=== PATIENT | female | born 1955 | race Caucasian/White ===

== ENCOUNTER 2019-12-29 06:44 | Observation (INO) | payer OTHER ==
[~2019-12-29] VITALS: Ht 162.6 cm; Wt 54.4 kg
[2019-12-29] VITALS (9 sets, daily range): BP systolic 129–135; BP diastolic 59–99
[2019-12-29] MEDS ORDERED: FLONASE 0.05%50 MCG NARES (07:30)
[2019-12-29] MEDS ORDERED: CLARITIN10 M3 PO (07:30)
[2019-12-29 07:40] LABS: HEMATOCRIT 40.4 % (37.0-47.0); HEMOGLOBIN 13.7 gm/dL (12.0-15.0); MCV 94.1 fL (80.0-100.0); RBC 4.3 mil/uL (4.20-5.00); RDW 13.6 % (10.5-14.5); WBC 4.2 thou/uL (4.0-11.0)
--- NOTE | 2019-12-29 07:41 | EKG ---
[facility] [place] [address] ELECTROCARDIOGRAM REPORT Name: REGINA TAM Room #: REG [facility].#: [id number] Admission: 12/29/19 Attend Phys: John George MD, Discharge: Date of : 51 Report #: [id number] THIS REPORT FOR: cc: OLEG CORTEZ Physician not on staff Mk Abraham MD [facility] THIS REPORT FOR: //name// [facility] Test Date: 2019-12-29 Test Time: 07:16:17 Pat Name: REGINA TAM Department: Room: Gender: Prep Manager: DANELLE : 1955 Requested By: John George Order Number: [id number] MD: Mk Abraham Measurements Intervals [place] Rate: 101 P: 74 MS: 166 QRS: 30 QRSD: 78 T: 56 QT: 363 QTc: 471 Interpretive Statements Sinus tachycardia Atrial premature complexes Poor R wave progression No previous ECG available for comparison Electronically Signed On 12-29-2019 7:40:16 CDT by Mk Abraham [email or web address] <ELECTRONICALLY SIGNED> By: Mk Abraham MD, [facility] 12/29/19 0740 5 5 Mk Abraham MD, [facility] /EPI
[2019-12-29 07:58] LABS: CALCIUM 8.4 mg/dL (8.5-10.1); CREATININE 0.7 mg/dL (0.6-1.0); POTASSIUM 3.8 mmol/L (3.5-5.1)
--- NOTE | 2019-12-29 12:15 | 2DMMODE ---
[facility] [place] [address] 2 D/M-MODE ECHOCARDIOGRAM Name: REGINA TAM Room #: 160-1 ADM Tamie Willis#: [id number] Admission: 12/29/19 Attend Phys: John George MD, Discharge: Date of : 51 Report #: [id number] THIS REPORT FOR: cc: OLEG CORTEZ Physician not on staff John George MD [facility] ~ APPROVED REPORT Study performed: 12/29/2019 10:25:07 EXAM: Comprehensive 2D, Doppler, and color-flow Echocardiogram Patient Location: CVL Status: routine BSA: 1.69 HR: 65 bpm BP: 134/99 mmHg Rhythm: Sinus/frequent arrhythmia Other Information Study Quality: Adequate/no patient participation. Technically limited study due to flat on back, breast implants.. Indications Chest pain, s/p heart cath with PCI. Cardiomyopathy. Hx: HTN, HLP, tobacco abuse, cancer. 2D Dimensions RVDd: 37.14 mm IVSd: 9.28 (7-11mm) LVOT Diam: 19.09 (18-24mm) LVDd: 45.07 mm PWd: 10.44 (7-11mm) Ascending Ao: 29.54 (22-36mm) LVDs: 38.24 (25-40mm) Aortic Root: 34.89 mm Volumes Left Atrial Volume (Systole) Single Plane 4CH: 30.62 mL Single Plane 2CH: 32.36 mL LA ESV Index: 21.00 mL/m2 Aortic Valve AoV Peak Zuhair.: 0.89 m/s AO Peak Gr.: 3.18 mmHg LVOT Max P.27 mmHg [facility] [address] [place] [address] 2 D/M-MODE ECHOCARDIOGRAM Name: REGINA TAM Room #: [address] [place] [address]#: [id number] Admission: 12/29/19 Attend Phys: John George, Discharge: Date of : 51 Report #: [id number] LVOT Max V: 0.56 m/s SILVERIO Vmax: 1.81 cm2 Mitral Valve E/A Ratio: 1.3 MV Decel. Time: 221.77 ms MV E Max Zuhair.: 0.72 m/s MV A Zuhair.: 0.55 m/s MV PHT: 64.31 ms IVRT: 96.89 ms Pulmonary Valve PV Peak Zuhair.: 0.42 m/s PV Peak Gr.: 0.70 mmHg Tricuspid Valve TR Peak Zuhair.: 2.01 m/s RAP Estimate: 5.00 mmHg TR Peak Gr.: 16.13 mmHg PA Pressure: 21.00 mmHg Left Ventricle The left ventricle is normal size. There is normal left ventricular wall thickness. Left ventricular systolic function is moderate to severely decreased. LVEF is 30-35% global hypo Right Ventricle The right ventricle is normal size. The right ventricular systolic function is normal. Atria The left atrium size is normal. The right atrium size is normal. Aortic Valve The aortic valve is normal in structure. No aortic regurgitation is present. There is no aortic valvular stenosis. Mitral Valve The mitral valve is normal in structure. Mild mitral regurgitation. No evidence of mitral valve stenosis. Tricuspid Valve The tricuspid valve is normal in structure. Trace to mild tricuspid regurgitation. Estimated PAP is 20-25mmHg. Pulmonic Valve The pulmonary valve is normal in structure. Trace pulmonic [facility] [address] [place] [address] 2 D/M-MODE ECHOCARDIOGRAM Name: REGINA TAM Room #: 160-1 ADM IN M.R.#: [id number] Admission: 12/29/19 Attend Phys: John George, Discharge: Date of : 51 Report #: [id number] regurgitation. Great Vessels The aortic root is normal in size. The ascending aorta is normal in size. IVC is normal in size and collapses >50% with inspiration. Pericardium There is no pericardial effusion. <Conclusion> The left ventricle is normal size. LVEF is 30-35% global hypo The right ventricle is normal size. The left atrium size is normal. The aortic valve is normal in structure. Mild mitral regurgitation. Trace to mild tricuspid regurgitation. Estimated PAP is 20-25mmHg. The aortic root is normal in size. There is no pericardial effusion. <ELECTRONICALLY SIGNED> By: John George MD, FACC 12/29/19 1214 13 13 John George MD, FACC /INF
--- NOTE | 2019-12-29 17:01 | CATHLAB ---
[facility] [address] [place] [address] INVASIVE PROCEDURE REPORT Name: REGINA TAM Room #: 200-I ADM Tamie Willis#: [id number] Admission: 12/29/19 Attend Phys: John George MD, Discharge: Date of : 51 Report #: [id number] THIS REPORT FOR: cc: OLEG CORTEZ Physician not on staff John George MD [facility] ~ APPROVED REPORT Study performed: 12/29/2019 08:30:28 Patient Details Patient Status: Out-Patient Room #: The patient is a 64 year-old female Event Personnel John George Marketing Analytics Analyst, Chloe Price Johnson, Ashley RN RN, Patricia Coates RTR, SOCIAL MEDIA MARKETING SPECIALIST Scrub Procedures Performed Art Access - R femoral artery* Cordell Access - R femoral vein Right and Left Heart Cath w/or w/o Coronarie [id number] [facility] Aortogram Abdominal Peripheral Angio [id number] SHAHLA Place w/wo Plasty Single LAD [id number] Hemostasis w/ Mynx 04378 Initial Mod Sed Same Phys/QHP Gr5y [id number] Mod Sed Same Phys/QHP Ea [id number] Indication Chest pain Procedure Narrative The Right Groin^ was infiltrated with 1% Lidocaine subcutaneous anesthesia. A PINNACLE 6FR Sheath #[id number] sheath was inserted into the RFA 6F^. Coronary angiography was performed using coronary diagnostic catheters. The right coronary system was accessed and visualized with a JR4 catheter. The left coronary system was accessed and visualized with a JL4 catheter. The left ventricle was accessed and visualized with a STR PIG catheter. Left ventriculogram was performed in 30 degree projection. There was no hematoma. A 7F SHEATH IN THE RFV for right heart pressures. held with a manual hold no complications Intraoperative Conscious Sedation Sedation start time: 906 Case end Time: 1009 Fentanyl 50 mcg Versed 1 mg [facility] [place] [address] INVASIVE PROCEDURE REPORT Name: REGINA TAM Room #: 200-I [facility]#: [id number] Admission: 12/29/19 Attend Phys: John George, Discharge: Date of : 51 Report #: [id number] Fluoro Time: 5.44 minutes Dose: DAP 5397.50 cGycm2 644 mGy Contrast Type and Amount: Omnipaque 205 ml Hemodynamics The right atrial mean pressure is 4 mmHg. The right ventricular pressure is 45/9 mmHg. The pulmonary artery pressure is 35/10 mmHg with a mean of 21 mmHg. The mean pulmonary capillary wedge pressure is 22 mmHg. The aortic pressure is 149/77 mmHg with a mean of 73 mmHg. The left ventricular pressure is 131/11 mmHg with a mean of mmHg. The left ventricular end diastolic pressure is 28 mmHg. The cardiac output using thermo method is 3.40 L/min. The cardiac index using thermo method is 2.01 L/min/m2. PCI Technique Lesion Percutaneous coronary intervention was performed on the mid left anterior descending artery segment. A LAUNCHER 6FR EBU 3.5 #[id number] Guide Catheter was used to engage the ostium. A Luge Wire .014 x 182CM #[id number] Interventional Guidewire was used to cross the lesion. STENT DEPLOYMENT A stent RESOLUTE JIGAR OTW 3.0 X 12 #[id number] was inserted and inflated up to 9.00atm for 17seconds. Additional Inflation: 14.00atm for 27seconds. Conclusion 1. Successful PTCA stent of the proximal eccentric 80% LAD lesion to 0% with placement of a 3.0 x 12 resolute jigar drug-eluting stent NANDO grade III flow #2 left main free of disease giving rise to LAD and circumflex #3 circumflex OM nondominant with mild irregularity #4 the LAD is otherwise preserved in a large diagonal system free of disease #5 dominant right with mild diffuse disease in the mid and proximal mid vessel 30 to 40% giving rise to a single PDA preserved. The posterior lateral system comes off the circumflex OM #6 mildly dilated left ventricle with moderate global hypokinesis EF in the 35% range. #7 the abdominal aorta is ectatic but no definite aneurysm. Brisk flow into the iliac system #8 successful right heart catheterization with hemodynamics and cardiac output by thermodilution all noted above. Recommendations and plan. Patient hemodynamically stable transfer to [facility] [address] [place] [address] INVASIVE PROCEDURE REPORT Name: REGINA TAM Room #: 200-I [facility] IN [facility]#: [id number] Admission: 12/29/19 Attend Phys: John George, Discharge: Date of : 51 Report #: [id number] CCU follow stent protocol. Dual antiplatelet therapy initiated. The degree of LV dysfunction is out of proportion to the coronary disease. Will initiate afterload reducers beta-ankita. <ELECTRONICALLY SIGNED> By: John George MD, FACC 12/29/191658 58 58 John George MD, FACC /INF
--- NOTE | 2019-12-29 18:44 | NUR ---
PT CARE ASSUMED AT 1320. ASSESSMENTS CHARTED. MEDICATION CHARTED. POST CARDIAC CATH; BEDREST COMPLETED PRIOR TO ADMISSION TO . RT GROIN; MYNX; C/D/I; MID LAD STENT. HEMOSTASIS AT 1001.
[2019-12-30 00:22] VITALS: BP 132/88
[2019-12-30 04:16] VITALS: BP 131/90
--- NOTE | 2019-12-30 04:31 | NUR ---
ASSESSMENTS CHARTED, MEDS GIVEN CHARTED. PATIENT RESTING IN BED DURING SHIFT. UP AT TIKA, OFF BED REST PRIOR TO START OF SHIFT. PATIENT WAS IN PHYSICAL THERAPIST AIDE DURING DAY SHIFT RECEIVED A STENT TO MID LAD. RIGHT GROIN SITE IS CLEAN, DRY, SOFT, INTACT. BRUISING PRESENT. PATIENT RECEIVED 1 LITER OF MAINTENANCE FLUID. PLAN OF CARE IS TO RETURN HOME TODAY. DENIED PAIN. FALL PRECAUTIONS IN PLACE.
[2019-12-30 05:23] LABS: HEMATOCRIT 38.6 % (37.0-47.0); HEMOGLOBIN 13.2 gm/dL (12.0-15.0); MCH 32.4 pg (26.0-34.0); MCHC 34.3 g/dL (28.0-37.0); MCV 94.4 fL (80.0-100.0); RBC 4.09 mil/uL (4.20-5.00); RDW 13.4 % (10.5-14.5); WBC 4.4 thou/uL (4.0-11.0)
[2019-12-30 05:45] LABS: ALBUMIN 2.9 g/dL (3.4-5.0); ANION GAP 7 mmol/L (7-16); BUN 7 mg/dL (7-18); CALCIUM 7.8 mg/dL (8.5-10.1); CHLORIDE 105 mmol/L (98-107); CHOLESTEROL 114 mg/dL (<200); CO2 26 mmol/L (21-32); CREATININE 0.7 mg/dL (0.6-1.0); GLUCOSE 97 mg/dL (74-106); HDL CHOLESTEROL 31 mg/dL (>40); LDL CHOLESTEROL 71 mg/dL (<100); POTASSIUM 3.9 mmol/L (3.5-5.1); SGOT 25 U/L (15-37); SGPT 24 U/L (30-65); SODIUM 138 mmol/L (136-145); TC:HDL 3.7 Ratio (Not establshd); TOTAL BILIRUBIN 0.6 mg/dL (0.2-1.0); TOTAL PROTEIN 6.5 g/dL (6.4-8.2); TRIGLYCERIDE 61 mg/dL (<150); TROPONIN-I <0.06 ng/mL (<0.06); VLDL 12 mg/dL (<40)
[2019-12-30 06:00] LABS: SERUM ASSESSMENT Clear
[2019-12-30] MEDS ORDERED: ASPIRIN325 PO (07:30)
[2019-12-30] MEDS ORDERED: EFFIENT10 MG PO (07:30)
[2019-12-30] MEDS ORDERED: LIPITOR40 MG PO (07:30)
[2019-12-30] MEDS ORDERED: METOPROLOL SUCC25 M1 PO (07:30)
[2019-12-30] MEDS ORDERED: COZAAR 25 MG TA25 M1 PO (07:30)
[2019-12-30 07:34] VITALS: BP 130/74
[2019-12-30 07:45] VITALS: BP 130/74
--- NOTE | 2019-12-30 08:01 | EKG ---
[facility] [place] [address] [place] [address] ELECTROCARDIOGRAM REPORT Name: REGINA TAM Room #: 200-I ADM Tamie M.R.#: [id number] Admission: 12/29/19 Attend Phys: John George MD, Discharge: Date of : 51 Report #: [id number] THIS REPORT FOR: cc: OLEG CORTEZ Physician not on staff Cristofer Kerr MD ~ THIS REPORT FOR: //name// [facility] Test Date: 2019-12-30 Test Time: 07:23:20 Pat Name: REGINA TAM Department: Room: 200 I Gender: F Kiln Operator Helper: [facility] : 1955 Requested By: Tana Aleman Order Number: [id number] MD: Cristofer Kerr Measurements Intervals [place] Rate: 86 P: 59 FL: 148 QRS: 47 QRSD: 75 T: 59 QT: 395 QTc: 473 Interpretive Statements Sinus rhythm Atrial premature complex Anteroseptal infarct, age indeterminate Compared to ECG 12/29/2019 07:16:17 Myocardial infarct finding now present Sinus tachycardia no longer present Poor R-wave progression no longer present Electronically Signed On 12-30-2019 8:00:36 CDT by Cristofer Kerr [email or web address] <ELECTRONICALLY SIGNED> By: Cristofer Kerr MD 12/30/19799 2 2 Cristofer Kerr MD /EPI
[2019-12-30 09:44] VITALS: BP 130/74
--- NOTE | 2019-12-30 11:43 | NUR ---
PT CARE ASSUMED AT 0700. ASSESSMENT CHARTED. MEDICATION CHARTED. PT DISCHARGED TO HOME. TELEMETRY D/C'D. IV D/C'D.
== END 2019-12-30 11:00 | disposition home or self-care (01) ==
LOC: CATH 06:44 → TBACV 10:57 → CATH 11:07 → 2N 13:43 → CATH 16:36 → 2N 12-30 11:00
PROVIDERS: Nurse Practitioner; ADMIT Internal Medicine Cardiovascular Disease; ATTEND Internal Medicine Cardiovascular Disease
DX: I25.10 Atherosclerotic heart disease of native coronary artery without angina pectoris (principal); I10 Essential (primary) hypertension; E78.5 Hyperlipidemia, unspecified; F41.9 Anxiety disorder, unspecified; F32.9 Major depressive disorder, single episode, unspecified; I42.9 Cardiomyopathy, unspecified; F17.200 Nicotine dependence, unspecified, uncomplicated; C50.919 Malignant neoplasm of unspecified site of unspecified female breast

== ENCOUNTER → 2020-05-11 | Outpatient (CLI) | payer OTHER ==
[~2020-05-11] MED LIST: ASPIRIN325 PO; CLARITIN10 M3 PO; COZAAR 25 MG TA25 M1 PO; EFFIENT10 MG PO; FLONASE 0.05%50 MCG NARES; LIPITOR40 MG PO; METOPROLOL SUCC25 M1 PO
== END ==
LOC: SJCVCIMAG 13:29 → SJCVC 15:19
PROVIDERS: ATTEND Internal Medicine Cardiovascular Disease
DX: I49.9 Cardiac arrhythmia, unspecified (principal); I49.3 Ventricular premature depolarization; I49.1 Atrial premature depolarization; I10 Essential (primary) hypertension; E78.00 Pure hypercholesterolemia, unspecified; Z95.5 Presence of coronary angioplasty implant and graft; Z79.899 Other long term (current) drug therapy